=== PATIENT | female | born 1990 | race Caucasian/White ===

== ENCOUNTER 2017-12-03 09:42 | Emergency (ER) | payer OTHER ==
[~2017-12-03] VITALS: Ht 167.6 cm; Wt 79.8 kg
[2017-12-03 10:07] VITALS: Ht 167.6 cm; Wt 79.8 kg
[2017-12-03 14:21] VITALS: BP 134/97
== END 2017-12-03 14:21 | disposition home or self-care (01) ==
LOC: ED 09:42
DX: G89.29 Other chronic pain (principal); M54.6 Pain in thoracic spine
CPT/HCPCS: J1885; J3010